=== PATIENT | male | born 1970 | race Caucasian/White ===

== ENCOUNTER 2023-09-02 07:45 | Emergency (ER) | payer SELFPAY ==
[~2023-09-02] VITALS: Ht 175.3 cm; Wt 75.0 kg
[2023-09-02 07:51] VITALS: BP 101/68; PULSE 80; RESP 16; TEMP 97.7; O2SAT 97
== END 2023-09-02 08:27 ==
LOC: ER 07:47
DX: S00.81XA Abrasion of other part of head, initial encounter (principal); S80.212A Abrasion, left knee, initial encounter; S80.211A Abrasion, right knee, initial encounter; Z88.0 Allergy status to penicillin; F17.200 Nicotine dependence, unspecified, uncomplicated; X58.XXXA Exposure to other specified factors, initial encounter; Y93.89 Activity, other specified; Y92.89 Other specified places as the place of occurrence of the external cause; Y99.8 Other external cause status
CPT/HCPCS: 99283